=== PATIENT | male | born 1940 | race Caucasian/White ===

== ENCOUNTER → 2016-09-11 | Outpatient (CLI) | payer MEDICARE, BC | LOC: MW.CHNEURO 08:00 | PROVIDERS: ATTEND Psychiatry & Neurology Neuromuscular Medicine | DX: G25.0 Essential tremor (principal) | CPT/HCPCS: 99204 ==

== ENCOUNTER 2017-06-04 08:56 | Day surgery (SDC) | payer MEDICARE, BC ==
[~2017-06-04 08:56] MED LIST: Lactated Ringers 1,000 ML IV SCH; Midazolam 1 MG/ML 2 ML SDV ONE; Propofol 200 MG/20 ML SDV ONE; Sodium Chloride 0.9% 10 ML Syringe FLUSH PRN; Sodium Chloride 0.9% 2.5 ML Syringe FLUSH PRN; fentaNYL 100 MCG/2 ML SDV ONE
--- NOTE | 2017-06-04 09:38 | PCM.PREANE ---
Preanesthetic Assessment - Anesthesia/Transfusion/Family Hx Anesthesia History: Prior Anesthesia Without Reaction Family History of Anesthesia Reaction: No Transfusion History: No Prior Transfusion(s) Intubation History: Unknown - Review of Systems General: No Symptoms Pulmonary: No Symptoms Cardiovascular: No Symptoms Gastrointestinal: No Symptoms, Other (h/o colon polyps, ;ast colonoscopy 5 years ago) Neurological: No Symptoms Other: Reports: None - Physical Assessment NPO Status Date: 06/03/17 NPO Status Time: 23:00 O2 Sat by Pulse Oximetry: 96 Respiratory Rate: 16 Vital Signs: Last Vital Signs Temp 37.2 C 06/04/17 09:18 Pulse 80 06/04/17 09:18 Resp 16 06/04/17 09:18 BP 118/56 L 06/04/17 09:18 Pulse Ox 96 06/04/17 09:18 Height: 1.88 m Weight: 120.656 kg ASA Class: 3 Mental Status: Alert & Oriented x3 Airway Class: Mallampati = 2 Dentition: Reports: Dentures (upper) Thyro-Mental Finger Breadths: 3 Mouth Opening Finger Breadths: 3 ROM/Head Extension: Limited/Partial Lungs: Clear to Auscultation, Normal Respiratory Effort Cardiovascular: Regular Rate, Regular Rhythm - Allergies Allergies/Adverse Reactions: Allergies Allergy/AdvReac Type Severity Reaction Status Date / Time No Known Allergies Allergy Verified 05/26/17 16:57 - Blood Blood Available: No - Anesthesia Plan Pre-Op Medication Ordered: None - Acknowledgements Anesthesia Type Planned: MAC Pt an Appropriate Candidate for the Planned Anesthesia: Yes Alternatives and Risks of Anesthesia Discussed w Pt/Guardian: Yes Pt/Guardian Understands and Agrees with Anesthesia Plan: Yes PreAnesthesia Questionnaire HEENT History: Reports: Hard of Hearing, Macular Degeneration Other HEENT History: wears glasses, has bilateral hearing aides Cardiovascular History: Reports: CAD, High Cholesterol, Hypertension, [place] (after CABG- before stents), Stents Other Cardiovascular History: denies current chest pain, SOB....has not taken any nitroglycerine for 5 years, CABG-4 vessels, stents x3 Respiratory History: Reports: Other (See Below) Other Respiratory History: pleural effusion after CABG Gastrointestinal History: Reports: Colon Polyp, GERD, Helicobacter Pylori Musculoskeletal History: Reports: Arthritis, Back Pain, Chronic, Other (See Below) Other Musculoskeletal History: left shoulder pain Neurological History: Reports: Neuropathy, Peripheral, Other (See Below) Other Neuro History: familial tremors Psychiatric History: Reports: Depression Endocrine/Metabolic History: Reports: Obesity/BMI 30+ Dermatologic History: Reports: Eczema - Past Surgical History Cardiovascular Surgical History: Reports: Coronary Artery Bypass (x4 '04, last stent in '04) GI Surgical History: Reports: Colonoscopy (x2 ;ast 5 years ago was normal), EGD , Other (See Below) (hemorrhoidectomy) Neurological Surgical History: Reports: Laminectomy, Spinal Fusion Other Neurological Surgeries/Procedures: Spinal fusion from T11-S1. - SUBSTANCE USE Smoking Status *Q: Former Smoker Tobacco Use Within Last Twelve Months: No Recreational Drug Use History: No - HOME MEDS Home Medications: Home Meds Amitriptyline [Elavil] 25 mg PO BEDTIME 05/26/17 [History] Arginine HCl [l-Arginine] 1,000 mg PO TID 05/26/17 [History] Aspirin [Adult Low Dose Aspirin EC] 81 mg PO DAILY 05/26/17 [History] Carboxymethyl/Glycerin/Poly80 [Refresh Optive Advanced Drops] 1 drop EYEBOTH DAILY 05/26/17 [History] Cholecalciferol (Vitamin D3) [Vitamin D3] 400 unit PO DAILY 05/26/17 [History] Clopidogrel Bisulfate [Plavix] 5 mg PO DAILY 05/26/17 [History] Cyanocobalamin/FA/Pyridoxine [Folbic] 1 tab PO DAILY 05/26/17 [History] Famotidine [Pepcid AC] 20 mg PO BID PRN 05/26/17 [History] Fenofibrate Nanocrystallized [Fenofibrate] 145 mg PO DAILY 05/26/17 [History] Fish Oil/[place]-3 Fatty Acids [Fish Oil 1,000 MG] 1 gm PO BID 05/26/17 [History] Hydrocodone/Acetaminophen [Hydrocodon-Acetaminophn 10-325] 1 - 2 tab PO TID PRN 05/26/17 [History] Isosorbide Mononitrate [Isosorbide Mononitrate ER] 30 mg PO BID 05/26/17 [ History] Nitroglycerin [Nitrostat] 0.4 mg PO ASDIRECTED PRN 05/26/17 [History] PARoxetine HCl [Paroxetine HCl] 10 mg PO QAM 05/26/17 [History] Primidone 100 mg PO BID 05/26/17 [History] Vit A/Vit C/Vit E/Zinc/Copper [Preservision Areds Softgel] 1 cap PO BID [History] amLODIPine Besylate [Amlodipine Besylate] 5 mg PO BID 05/26/17 [History] atorvaSTATin Calcium [Atorvastatin Calcium] 10 mg PO DAILY 05/26/17 [History] - CURRENT (IN HOUSE) MEDS Current Meds: Current Medications Lactated Ringer's (Ringers, Lactated) 1,000 mls @ 125 mls/hr IV ASDIRECTED MAAME Last Admin: 06/04/17 09:19 Dose: 125 mls/hr Lactated Ringer's (Ringers, Lactated) 1,000 mls @ 125 mls/hr IV ASDIRECTED MAAME Sodium Chloride (Saline Flush) 10 ml FLUSH ASDIRECTED PRN PRN Reason: Keep Vein Open Sodium Chloride (Saline Flush) 2.5 ml FLUSH ASDIRECTED PRN PRN Reason: Keep Vein Open Sodium Chloride (Saline Flush) 10 ml FLUSH ASDIRECTED PRN PRN Reason: Keep Vein Open Sodium Chloride (Saline Flush) 2.5 ml FLUSH ASDIRECTED PRN PRN Reason: Keep Vein Open Sodium Chloride (Saline Flush) 10 ml FLUSH ASDIRECTED PRN PRN Reason: Keep Vein Open Sodium Chloride (Saline Flush) 2.5 ml FLUSH ASDIRECTED PRN PRN Reason: Keep Vein Open Discontinued Medications Fentanyl (Sublimaze) Confirm Administered Dose 100 mcg .ROUTE .STK-MED ONE Stop: 06/04/17 07:17 Midazolam HCl (Versed 1 Mg/Ml) Confirm Administered Dose 2 mg .ROUTE .STK-MED ONE Stop: 06/04/17 07:17 Propofol (Diprivan 20 Ml) Confirm Administered Dose 200 mg .ROUTE .STK-MED ONE Stop: 06/04/17 07:17
--- NOTE | 2017-06-04 11:13 | PCM.OPNOTE ---
- General Post-Op/Procedure Note Date of Surgery/Procedure: 06/04/17 Operative Procedure(s): Colonoscopy Findings: Normal colonoscopy Pre Op Diagnosis: positive fecal occult blood test Post-Op Diagnosis: normal colonoscopy Primary Surgeon: Lidia Iglesias Condition: Good
--- NOTE | 2017-06-05 13:25 | OR ---
SURGEON: LIDIA IGLESIAS MD DATE OF PROCEDURE: 06/04/2017 PREOPERATIVE DIAGNOSIS: Positive fecal occult blood test. POSTOPERATIVE DIAGNOSIS: Positive fecal occult blood test. PROCEDURE PERFORMED: Diagnostic colonoscopy. ENDOSCOPIST: Lidia Iglesias MD ANESTHESIA: MAC. INSTRUMENT USED: Olympus colonoscope. EXTENT OF EXAM: To the cecum. PREPARATION: Good. LIMITATIONS: None. INDICATION FOR EXAMINATION: The patient is a 77-year-old male, who presents with a positive fecal occult blood test. The decision was made to perform a diagnostic colonoscopy. We discussed the procedure, expected perioperative course, and risks including bleeding, infection, or damage to surrounding structures including perforation. The patient verbalized understanding and wishes to proceed. PROCEDURE IN DETAIL: The patient was brought to the endoscopy suite and placed in the left lateral decubitus position. A time-out was completed verifying the patient's name, age, date of , allergies, and procedure to be performed. Monitored anesthesia care was induced and continuous oxygen was provided via nasal cannula throughout the procedure. After adequate sedation was achieved, a digital rectal exam was performed. This exam was within normal limits. A well-lubricated colonoscope was inserted in the rectum and advanced under direct visualization to the level of cecum. Cecum was identified by both visual and anatomic landmarks. A photograph was taken of the cecal cap, but due to looping of the scope more proximally, I was unable to retroflex the scope within the cecum. The scope was then fully withdrawn while examining the color, texture, anatomy, and integrity of the mucosa from the cecum to the anal canal. The findings were consistent with normal colonic mucosa. The scope was then brought into the rectum and retroflexed to allow visualization of the anal canal opening. This appeared normal and a photograph was taken. The scope was then straightened out and fully withdrawn. The cecum to anus time was 9 minutes. The patient tolerated the procedure well and was taken to PACU in stable condition. ENDOSCOPIC DIAGNOSIS: Normal colonoscopy. RECOMMENDATIONS: The patient can return to his primary care physician's office for any further workup. The patient would be due for a repeat colonoscopy in 10 years. However, given his age, I will not schedule a followup appointment in clinic. He can come back and see me if there are any questions, concerns, or new symptoms that develop. GARY / DAY /[id number]
== END 2017-06-04 11:50 | disposition home or self-care (01) ==
LOC: MW.SDS 08:56
PROVIDERS: ATTEND Surgery
DX: R19.5 Other fecal abnormalities (principal); G89.29 Other chronic pain; M54.5 Low back pain; F32.9 Major depressive disorder, single episode, unspecified; I10 Essential (primary) hypertension; E78.00 Pure hypercholesterolemia, unspecified; E78.1 Pure hyperglyceridemia; Z79.82 Long term (current) use of aspirin; Z79.899 Other long term (current) drug therapy; Z87.891 Personal history of nicotine dependence
CPT/HCPCS: 45378; J2250; J3010; J7120; 00811; J2704

== ENCOUNTER 2020-01-27 10:09 | Day surgery (SDC) | payer MEDICARE, BC ==
[~2020-01-27 10:09] MED LIST changes: -Midazolam 1 MG/ML 2 ML SDV ONE; -Propofol 200 MG/20 ML SDV ONE; +Sodium Chloride 0.9% 10 ML SDV IV PRN; -fentaNYL 100 MCG/2 ML SDV ONE
[2020-01-27] MEDS ORDERED: fentaNYL 100 MCG/2 ML SDV ONE (10:32)
[2020-01-27] MEDS ORDERED: Lidocaine 2% 5 ML SDV ONE (10:32)
--- NOTE | 2020-01-27 10:56 | PCM.PREANE ---
Preanesthetic Assessment - Anesthesia/Transfusion/Family Hx Anesthesia History: Prior Anesthesia Without Reaction Family History of Anesthesia Reaction: No Transfusion History: No Prior Transfusion(s) Intubation History: Unknown - Review of Systems General: No Symptoms Pulmonary: No Symptoms Cardiovascular: No Symptoms Gastrointestinal: Other (chronic fatigue, chronic cough and newly diagnosed anemia, h/o esophagitis) Neurological: No Symptoms, Tremors Other: Reports: None - Physical Assessment Vital Signs: Last Vital Signs Temp 36.2 C 01/27/20 10:20 Pulse 80 01/27/20 10:20 Resp 16 01/27/20 10:20 BP 126/71 01/27/20 10:20 Pulse Ox 98 01/27/20 10:20 Height: 6 ft 2 in Weight: 113.398 kg ASA Class: 3 Mental Status: Alert & Oriented x3 Airway Class: Mallampati = 2 Dentition: Reports: Dentures (upper) Thyro-Mental Finger Breadths: 3 Mouth Opening Finger Breadths: 3 ROM/Head Extension: Limited/Partial Lungs: Clear to Auscultation, Normal Respiratory Effort Cardiovascular: Regular Rate, Regular Rhythm - Allergies Allergies/Adverse Reactions: Allergies Allergy/AdvReac Type Severity Reaction Status Date / Time pistachio nut Allergy Airway Verified 01/24/20 11:46 Tightness - Blood Blood Available: No - Anesthesia Plan Pre-Op Medication Ordered: None - Acknowledgements Anesthesia Type Planned: MAC Pt an Appropriate Candidate for the Planned Anesthesia: Yes Alternatives and Risks of Anesthesia Discussed w Pt/Guardian: Yes Pt/Guardian Understands and Agrees with Anesthesia Plan: Yes PreAnesthesia Questionnaire HEENT History: Reports: Hard of Hearing, Macular Degeneration Other HEENT History: wears glasses, has upper denture, has bilateral hearing aides Cardiovascular History: Reports: CAD, High Cholesterol, Hypertension, CA ('04), Stents (c3 '04) Other Cardiovascular History: CABG Respiratory History: Reports: Other (See Below) Other Respiratory History: hx of Pleural effusion after CABG, has had chronic acough x 4 months Gastrointestinal History: Reports: Colon Polyp, GERD, GI Bleed Genitourinary History: Reports: Prostate Disorder Other Genitourinary History: hx of prostate cancer Musculoskeletal History: Reports: Arthritis, Back Pain, Chronic, Neck Pain, Chronic Other Musculoskeletal History: left shoulder pain Neurological History: Reports: Other (See Below) Other Neuro History: hx of Familial tremors Psychiatric History: 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) Endocrine/Metabolic History: Reports: Obesity/BMI 30+ (BMI 32.1) Hematologic History: Reports: Anemia, Anticoagulation Therapy Oncologic (Cancer) History: Reports: Prostate Dermatologic History: Reports: Eczema - Past Surgical History Head Surgeries/Procedures: Reports: None HEENT Surgical History: Reports: None Cardiovascular Surgical History: Reports: Coronary Artery Bypass, Coronary Artery Stent Other Cardiovascular Surgeries/Procedures: hx of CABG (4 vessels), hx of CA with Angioplasty (3 stents) in 2003 Respiratory Surgical History: Reports: Thoracentesis Other Respiratory Surgeries/Procedures: thoracentesis x3 GI Surgical History: Reports: Colonoscopy (x3, '07.'12.), EGD Other GI Surgeries/Procedures: hemorrhoidectomy Male Surgical History: Reports: Prostate Biopsy Neurological Surgical History: Reports: Lumbar Spine, Spinal Fusion Other Neurological Surgeries/Procedures: Spinal fusion from T11-S1. Musculoskeletal Surgical History: Reports: Hip Replacement Other Musculoskeletal Surgeries/Procedures:: hx of right XIOMY 06/10 - SUBSTANCE USE Smoking Status *Q: Former Smoker Tobacco Use Within Last Twelve Months: No Recreational Drug Use History: No - HOME MEDS Home Medications: Home Meds Amitriptyline [Elavil] 25 mg PO BEDTIME 05/26/17 [History] Arginine HCl [l-Arginine] 1,000 mg PO TID 05/26/17 [History] Aspirin [Adult Low Dose Aspirin EC] 81 mg PO DAILY 05/26/17 [History] Carboxymethyl/Glycerin/Poly80 [Refresh Optive Advanced Drops] 1 drop EYEBOTH BID PRN 05/26/17 [History] Clopidogrel Bisulfate [Plavix] 75 mg PO DAILY 05/26/17 [History] Fenofibrate Nanocrystallized [Fenofibrate] 145 mg PO DAILY 05/26/17 [History] Fish Oil/[place]-3 Fatty Acids [Fish Oil 1,000 MG] 1 gm PO BID 05/26/17 [History] Isosorbide Mononitrate [Isosorbide Mononitrate ER] 30 mg PO BID 05/26/17 [History] Nitroglycerin [Nitrostat] 0.4 mg PO Q5M PRN MDD 3 05/26/17 [History] Vit A/Vit C/Vit E/Zinc/Copper [Preservision Areds Softgel] 1 cap PO BID 05/26/17 [History] amLODIPine Besylate [Amlodipine Besylate] 5 mg PO BID 05/26/17 [History] atorvaSTATin Calcium [Atorvastatin Calcium] 10 mg PO DAILY 05/26/17 [History] Docusate Sodium 100 mg PO BID 04/04/18 [History] Finasteride 5 mg PO DAILY 04/04/18 [History] Primidone [Mysoline] 150 mg PO BID 04/04/18 [History] Cholecalciferol (Vitamin D3) [Vitamin D3] 1,000 unit PO DAILY 01/24/20 [History] Cyanocobalamin/FA/Pyridoxine [Folbic] 1 tab PO DAILY 01/24/20 [History] Famotidine [Pepcid AC] 20 mg PO BID PRN 01/24/20 [History] Omeprazole 20 mg PO QAM 01/24/20 [History] PARoxetine HCL [Paroxetine HCl] 10 mg PO QAM 01/24/20 [History] Sucralfate 1 gm PO QID 01/24/20 [History] - CURRENT (IN HOUSE) MEDS Current Meds: Current Medications Lactated Ringer's (Ringers, Lactated) 1,000 mls @ 125 mls/hr IV ASDIRECTED MAAME Last Admin: 01/27/20 10:35 Dose: 125 mls/hr Documented by: Sodium Chloride (Saline Flush) 10 ml FLUSH ASDIRECTED PRN PRN Reason: Keep Vein Open Sodium Chloride (Saline Flush) 2.5 ml FLUSH ASDIRECTED PRN PRN Reason: Keep Vein Open Sodium Chloride (Saline Flush) 10 ml FLUSH ASDIRECTED PRN PRN Reason: Keep Vein Open Sodium Chloride (Saline Flush) 2.5 ml FLUSH ASDIRECTED PRN PRN Reason: Keep Vein Open Sodium Chloride (Normal Saline) 10 ml IV ASDIRECTED PRN PRN Reason: IV Use Discontinued Medications Fentanyl (Sublimaze) Confirm Administered Dose 100 mcg .ROUTE .STK-MED ONE Stop: 01/27/20 10:33 Lidocaine (Xylocaine-Mpf 2%) Confirm Administered Dose 5 ml .ROUTE .STK-MED ONE Stop: 01/27/20 10:33
[2020-01-27] MEDS ORDERED: Sodium Chloride 0.9% 20 ML ONE (10:58)
[2020-01-27] MEDS ORDERED: ceFAZolin 1 GM Vial ONE (10:58)
--- NOTE | 2020-01-27 11:14 | PCM.OPNOTE ---
- General Post-Op/Procedure Note Date of Surgery/Procedure: 01/27/20 Operative Procedure(s): Diagnostic EGD. Findings: Gastritis with very superficial ulcerations. No evidence of esophagitis. Small hiatal hernia. Hyperplastic gastric polyp. Pre Op Diagnosis: Iron deficiency anemia. Post-Op Diagnosis: Gastritis. Small hiatal hernia. Hyperplastic gastric polyp. Anesthesia Technique: [facility] [place] Primary Surgeon: Lidia Iglesias Complications: None. Condition: Stable
[2020-01-27] MEDS ORDERED: Propofol 200 MG/20 ML SDV ONE (11:15)
--- NOTE | 2020-01-27 14:20 | OR ---
SURGEON: LIDIA IGLESIAS MD DATE OF PROCEDURE: 01/27/2020 PREOPERATIVE DIAGNOSIS: Iron-deficiency anemia. POSTOPERATIVE DIAGNOSES: 1. Hyperplastic gastric polyp. 2. Gastritis. 3. Superficial ulceration of the distal stomach lining. 4. Hiatal hernia. PROCEDURE PERFORMED: Diagnostic esophagogastroduodenoscopy with biopsies. PRIMARY SURGEON: Lidia Iglesias MD. ANESTHESIA: MAC. INSTRUMENT USED: Olympus endoscope. EXTENT OF EXAM: To the second portion of duodenum. PREPARATION: Good. LIMITATIONS: None. INDICATIONS FOR EXAMINATION: The patient is a 79-year-old male who presents to my clinic with iron-deficiency anemia. He underwent a hip replacement last winter and ever since then he has felt weak. Blood work prior to the surgery was normal; however, ever since the surgery he has had mild iron deficiency anemia. He underwent a colonoscope 2 years ago which was normal. A decision was made to proceed with diagnostic EGD. He underwent a preoperative esophagram which showed a small hiatal hernia associated with moderate reflux and moderate esophageal spasm. The patient and I discussed the EGD procedure as well as expected perioperative course and risks including bleeding and perforation. He verbalized understanding and wishes to proceed. PROCEDURE IN DETAIL: The patient was brought to the endoscopy suite and placed in a beach chair position. A time-out was completed verifying the patient's name, age, date of , allergies, and procedure to be performed. Monitored anesthesia care was induced and a bite block was placed in the patient's mouth. Continuous oxygen was provided via nasal cannula throughout the procedure. After adequate sedation was achieved, a well-lubricated endoscope was placed in the patient's mouth and advanced under direct visualization to the second portion of duodenum. This appeared normal and a photograph was taken. The scope was then fully withdrawn while examining the color, texture, anatomy, and integrity of mucosa of the upper GI tract. The duodenum appeared normal with no evidence of ulceration or inflammation. The scope was brought into the stomach and a photograph taken of the pylorus as well as the GE junction. The patient had a very small hiatal hernia. In the antrum and body of the stomach, the patient had what appeared to be chronic gastritis with small pinpoint areas of healing ulceration. There were some scattered hyperplastic polyps within the body of the stomach lining as well. Biopsies were taken of the gastric antrum, body, and fundus and sent for histologic review and H pylori testing. One of the hyperplastic polyps was removed as well and sent to Pathology, labeled as hyperplastic gastric polyp. The scope was brought into the distal esophagus and a photograph taken of the Z-line. Grossly, the Z-line appeared normal. The distal esophageal mucosa had no signs of esophagitis or ulceration. A biopsy was taken 1 cm above the Z-line and sent to Pathology, labeled as esophagus. The esophagus was mildly tortuous along the distal half, but otherwise the remainder of the exam was normal. The scope was brought into the posterior pharynx and a photograph was taken of the vocal cords, which appeared normal. The scope was removed and the procedure terminated. The patient tolerated the procedure well and was transferred to the PACU in stable condition. ENDOSCOPIC DIAGNOSES: 1. Hyperplastic gastric polyp. 2. Gastritis. 3. Superficial ulceration of the distal stomach lining. 4. Hiatal hernia. RECOMMENDATIONS: We will switch the patient from omeprazole to pantoprazole 40 mg daily and refill his sucralfate. He should continue to take these and will follow up in clinic in 1 to 2 weeks to review his biopsy results. GARY BERNSTEIN /[id number]
--- NOTE | 2020-01-27 14:33 | PCM.POSTAN ---
POST ANESTHESIA ASSESSMENT - MENTAL STATUS Mental Status: Alert, Oriented - VITAL SIGNS Vital Signs: Last Vital Signs Temp 35.9 C L 01/27/20 11:27 Pulse 88 01/27/20 11:27 Resp 14 01/27/20 11:27 BP 140/70 01/27/20 11:27 Pulse Ox 94 L 01/27/20 12:18 - RESPIRATORY Respiratory Status: Respiratory Rate WNL, Airway Patent, O2 Saturation Stable - CARDIOVASCULAR CV Status: Pulse Rate WNL, Blood Pressure Stable - GASTROINTESTINAL GI Status: No Symptoms - PAIN Pain Score: 0 - POST OP HYDRATION Hydration Status: Adequate & Stable - OBSERVATIONS Free Text/Narrative:: No anesthesia problems
--- NOTE | 2020-01-27 14:34 | PCM48HPAN ---
Post Anesthesia Note - EVALUATION WITHIN 48HRS OF ANESTHETIC Vital Signs in Normal Range: Yes Patient Participated in Evaluation: Yes Respiratory Function Stable: Yes Airway Patent: Yes Cardiovascular Function Stable: Yes Hydration Status Stable: Yes Pain Control Satisfactory: Yes Nausea and Vomiting Control Satisfactory: Yes Mental Status Recovered: Yes Vital Signs: Last Vital Signs Temp 35.9 C L 01/27/20 11:27 Pulse 88 01/27/20 11:27 Resp 14 01/27/20 11:27 BP 140/70 01/27/20 11:27 Pulse Ox 94 L 01/27/20 12:18 - COMMENTS/OBSERVATIONS Free Text/Narrative:: No anesthesia problems
== END 2020-01-27 12:18 | disposition home or self-care (01) ==
LOC: MW.SDS 10:09
PROVIDERS: ATTEND Surgery
DX: K29.50 Unspecified chronic gastritis without bleeding (principal); K31.7 Polyp of stomach and duodenum; K25.9 Gastric ulcer, unspecified as acute or chronic, without hemorrhage or perforation; D50.9 Iron deficiency anemia, unspecified; K44.9 Diaphragmatic hernia without obstruction or gangrene; G89.29 Other chronic pain; F32.9 Major depressive disorder, single episode, unspecified; I25.2 Old myocardial infarction; I10 Essential (primary) hypertension; E78.1 Pure hyperglyceridemia; R05 Cough; R53.83 Other fatigue; I25.10 Atherosclerotic heart disease of native coronary artery without angina pectoris; E78.00 Pure hypercholesterolemia, unspecified; Z79.899 Other long term (current) drug therapy; Z79.82 Long term (current) use of aspirin; Z95.5 Presence of coronary angioplasty implant and graft; Z91.018 Allergy to other foods
CPT/HCPCS: 43239; J0690; J2001; J2704; J3010; J7120; 00731; 88305; 88312

== ENCOUNTER 2020-06-20 13:55 | Emergency (ER) | payer MEDICARE, BC ==
[2020-06-20] MEDS ORDERED: diphenhydrAMINE 50 MG/ML SDV IVPUSH ONE ×2 (14:10→15:10)
[2020-06-20] MEDS ORDERED: Metoclopramide 10 MG/2 ML SDV IVPUSH ONE ×2 (14:10→15:10)
[2020-06-20] MEDS ORDERED: Lactated Ringers 1,000 ML IV ONE (14:10)
--- NOTE | 2020-06-20 14:19 | EDM.PDOC ---
ED HPI GENERAL MEDICAL PROBLEM - General Chief Complaint: Headache Stated Complaint: HEAD PAIN Time Seen by Provider: 06/20/20 13:59 - History of Present Illness INITIAL COMMENTS - FREE TEXT/NARRATIVE: 80-year-old male with a history of intention tremor, CABG with stents on Plavix but not aspirin with history of GI bleeding no history of heart failure patient presenting with headache. Patient describes gradually worsening right occipital headache that started 4 days ago and initially was not terribly notable but has gotten worse and worse. There are no other neurologic symptoms with that he denies blurry vision he denies new difficulty walking (he has baseline difficulty walking due to multiple fusions in his back). He denies any focal weakness he denies any change in sensation. He denies any vertigo. He denies any fevers he denies any neck pain or stiffness. The headache goes away when he leans back in his recliner or lays down but immediately returns when he stands up. He denies any history of surgery on his brain or spinal cord. His back surgeries were many many years ago. He denies nausea or vomiting. Patient was seen in the clinic labs were ordered and the patient was sent to the CT scanner for noncontrast CT scan of his brain and he was then brought over to the ER. Headache Pain Score (Numeric/FACES): 6 - Related Data Allergies Allergy/AdvReac Type Severity Reaction Status Date / Time pistachio nut Allergy Airway Verified 01/24/20 11:46 Tightness Home Meds: Home Meds Amitriptyline [Elavil] 25 mg PO BEDTIME 05/26/17 [History] Arginine HCl [l-Arginine] 1,000 mg PO TID 05/26/17 [History] Aspirin [Adult Low Dose Aspirin EC] 81 mg PO DAILY 05/26/17 [History] Carboxymethyl/Glycerin/Poly80 [Refresh Optive Advanced Drops] 1 drop EYEBOTH BID PRN 05/26/17 [History] Clopidogrel Bisulfate [Plavix] 75 mg PO DAILY 05/26/17 [History] Fenofibrate Nanocrystallized [Fenofibrate] 145 mg PO DAILY 05/26/17 [History] Isosorbide Mononitrate [Isosorbide Mononitrate ER] 30 mg PO BID 05/26/17 [History] Nitroglycerin [Nitrostat] 0.4 mg PO Q5M PRN MDD 3 05/26/17 [History] Vit A/Vit C/Vit E/Zinc/Copper [Preservision Areds Softgel] 1 cap PO BID 05/26/17 [History] amLODIPine Besylate [Amlodipine Besylate] 5 mg PO BID 05/26/17 [History] atorvaSTATin Calcium [Atorvastatin Calcium] 10 mg PO DAILY 05/26/17 [History] Docusate Sodium 100 mg PO BID 04/04/18 [History] Finasteride 5 mg PO DAILY 04/04/18 [History] Primidone [Mysoline] 150 mg PO BID 04/04/18 [History] Cholecalciferol (Vitamin D3) [Vitamin D3] 1,000 unit PO DAILY 01/24/20 [History] Cyanocobalamin/FA/Pyridoxine [Folbic] 1 tab PO DAILY 01/24/20 [History] Famotidine [Pepcid AC] 20 mg PO BID PRN 01/24/20 [History] PARoxetine HCL [Paroxetine HCl] 10 mg PO QAM 01/24/20 [History] Sucralfate 1 gm PO QID 01/24/20 [History] Fish Oil/[place]-3 Fatty Acids [Fish Oil 1,000 MG] 1 gm PO QID 6 Days #60 01/27/20 [Rx] Pantoprazole [ProTONIX] 40 mg PO DAILY #30 tab.cr 01/27/20 [Rx] methylPREDNISolone [Medrol Dose Pack] 4 mg PO ASDIRECTED #1 dospk 06/20/20 [Rx] Past Medical History HEENT History: Reports: Hard of Hearing, Macular Degeneration Other HEENT History: wears glasses, has bilateral hearing aides Cardiovascular History: Reports: [place], Stents, Other (See Below) Other Cardiovascular History: CABG Respiratory History: Reports: Other (See Below) Other Respiratory History: pleural effusion after CABG Gastrointestinal History: Reports: Colon Polyp, GERD, GI Bleed Genitourinary History: Reports: Prostate Disorder Other Genitourinary History: hx of prostate cancer Musculoskeletal History: Reports: Arthritis, Back Pain, Chronic, Neck Pain, Chronic Other Musculoskeletal History: left shoulder pain Neurological History: Reports: Neuropathy, Peripheral, Other (See Below) Other Neuro History: familial tremors Psychiatric History: 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) Endocrine/Metabolic History: Reports: Obesity/BMI 30+ (BMI 32.1) Hematologic History: Reports: Anemia, Anticoagulation Therapy Oncologic (Cancer) History: Reports: Prostate Dermatologic History: Reports: Eczema - Past Surgical History Cardiovascular Surgical History: Reports: Coronary Artery Bypass GI Surgical History: Reports: Colonoscopy, EGD, Other (See Below) Neurological Surgical History: Reports: Laminectomy, Spinal Fusion Musculoskeletal Surgical History: Reports: Other (See Below) Social & Family History - Family History Family Medical History: No Pertinent Family History - Caffeine Use Caffeine Use: Reports: None ED ROS GENERAL - Review of Systems Review Of Systems: See Below Free Text/Narrative/Comment: General: No fever. Skin: No rash. Eyes: No vision problems. ENT: No sore throat. Neck: No neck stiffness. Respiratory: No shortness of breath. Cardiac: No chest pain. Gastrointestinal: No nausea, vomiting or abdominal pain. Musculoskeletal: No myalgias/arthralgias. Neurologic: Per HPI ED EXAM, GENERAL - Physical Exam Exam: See Below Free Text/Narrative:: General Appearance: No acute distress, appears comfortable Skin: No rash HEENT: Normocephalic/atraumatic, sclera anicteric, mucous membranes moist Neck: Normal range of motion Chest and Lungs: Bilateral breath sounds, clear to auscultation Cardiovascular: Regular rate and rhythm, no murmur Abdomen: Soft, non-tender Musculoskeletal: No edema or tenderness Neurologic: Awake, alert, bilateral intention tremor (baseline per patient), intact [id number] bilaterally 5 out of 5 strength bilateral upper and lower extremities, sensation grossly intact, cranial nerves III through XI intact bilaterally Psychiatric: Appropriate, cooperative Course - Vital Signs Last Recorded V/S: Last Vital Signs Temp 98.6 F 06/20/20 14:17 Pulse 73 06/20/20 14:17 Resp 18 06/20/20 14:17 BP 132/78 06/20/20 14:17 Pulse Ox 93 L 06/20/20 14:17 - Orders/Labs/Meds Meds: Medications Discontinued Medications Generic Name Dose Route Start Last Admin Trade Name Freq PRN Reason Stop Dose Admin Diphenhydramine HCl 25 mg 06/20/20 14:10 06/20/20 14:31 Benadryl IVPUSH 06/20/20 14:11 25 mg ONETIME ONE Administration Diphenhydramine HCl 25 mg 06/20/20 15:10 06/20/20 15:30 Benadryl IVPUSH 06/20/20 15:11 25 mg ONETIME ONE Administration Lactated Ringer's 1,000 mls @ 1,000 mls/hr 06/20/20 14:10 06/20/20 14:31 Ringers, Lactated IV 06/20/20 15:09 1,000 mls/hr .BOLUS ONE Administration Metoclopramide HCl 10 mg 06/20/20 14:10 06/20/20 14:31 Reglan IVPUSH 06/20/20 14:11 10 mg ONETIME ONE Administration Metoclopramide HCl 10 mg 06/20/20 15:10 06/20/20 15:31 Reglan IVPUSH 06/20/20 15:11 10 mg ONETIME ONE Administration Departure - Departure Time of Disposition: 16:08 Disposition: Home, Self-Care 01 Condition: Good Clinical Impression: Headache - Discharge Information *PRESCRIPTION DRUG MONITORING PROGRAM REVIEWED*: Not Applicable *COPY OF PRESCRIPTION DRUG MONITORING REPORT IN PATIENT MEHRAN: Not Applicable Prescriptions: methylPREDNISolone [Medrol Dose Pack] 4 mg PO ASDIRECTED #1 dospk Instructions: General Headache Without Cause Forms: ED Department Discharge Additional Instructions: Please be sure to take the Medrol Dosepak with food. Gradually improve over the next day or so. If your headache suddenly worsens or you develop any other new symptoms that concern you please return to the ER. Otherwise please follow-up with your primary care doctor. The following information is given to patients seen in the emergency department who are being discharged to home. This information is to outline your options for follow-up care. We provide all patients seen in our emergency department with a follow-up referral. The need for follow-up, as well as the timing and circumstances, are variable depending upon the specifics of your emergency department visit. If you don't have a primary care physician on staff, we will provide you with a referral. We always advise you to contact your personal physician following an emergency department visit to inform them of the circumstance of the visit and for follow-up with them and/or the need for any referrals to a consulting specialist. The emergency department will also refer you to a specialist when appropriate. This referral assures that you have the opportunity for follow-up care with a specialist. All of these measure are taken in an effort to provide you with optimal care, which includes your follow-up. Under all circumstances we always encourage you to contact your private physician who remains a resource for coordinating your care. When calling for follow-up care, please make the office aware that this follow-up is from your recent emergency room visit. If for any reason you are refused follow-up, please contact the [facility] Emergency Department at and asked to speak to the emergency department charge nurse. Sepsis Event Note (ED) - Focused Exam Vital Signs: Vital Signs Temp Pulse Resp BP Pulse Ox 06/20/20 14:17 98.6 F 73 18 132/78 93 L - Assessment/Plan Assessment:: 80-year-old male presenting with headache currently 8 out of 10 per his report. Gradual worsening is not consistent with subarachnoid hemorrhage and I do not have a clinical concern for that at this time. Given duration of symptoms and lack of fever and nontoxic appearance I do not have a clinical concern for meningitis or encephalitis. Patient has no focal neurologic findings that would suggest stroke either hemorrhagic or ischemic. He is without risk factors for dural venous sinus thrombosis and presentation would be highly atypical for this. He has no tenderness to his posterior skull or scalp that would suggest occipital neuralgia. The fact that it resolves with laying down and improves with sitting up would be consistent with a CSF leak. However the patient has no risk factors for this he has no recent trauma he has no recent neurologic procedures he has no reason to have a [employer] leak. Will provide 1 L of lactated Ringer's as well as 10 of Reglan and 25 of Benadryl and reassess while we await lab results from the clinic as well as the formal result of the CT scan of the brain. My initial review of the CT scan of the brain does not demonstrate any large intracranial mass or obvious intracranial hemorrhage to me. labs from clinic show normal WBC, unremarkable chemistry with stable mild renal insufficiency and negative COVID-[address] brain and C-spine likewise without acute pathology. 1607: Patient feels "pretty good" after 2 rounds of 25 mg of Benadryl and 10 mg of Reglan. Given the findings on the CT of the C-spine which show significant degenerative disc disease I wonder if this may be playing a role given his prior history of GI bleeding in the setting of NSAIDs we will do a Medrol Dosepak strict return precaution discussed and understood need follow-up with primary care doctor.
== END 2020-06-20 16:26 | disposition home or self-care (01) ==
LOC: MW.ED 13:55
DX: R51.9 Headache, unspecified (principal); N42.9 Disorder of prostate, unspecified; I25.2 Old myocardial infarction; M19.90 Unspecified osteoarthritis, unspecified site; G62.9 Polyneuropathy, unspecified; E66.9 Obesity, unspecified; Z68.31 Body mass index [BMI] 31.0-31.9, adult; Z95.1 Presence of aortocoronary bypass graft; Z79.02 Long term (current) use of antithrombotics/antiplatelets; K21.9 Gastro-esophageal reflux disease without esophagitis; Z79.82 Long term (current) use of aspirin; Z79.899 Other long term (current) drug therapy; Z91.013 Allergy to seafood
CPT/HCPCS: 96374; 96375; 96376; 99283; J1200; J2765; J7120

== ENCOUNTER 2020-08-23 14:21 | Emergency (ER) | payer MEDICARE, BC ==
[2020-08-23] MEDS ORDERED: Metoclopramide 10 MG/2 ML SDV IVPUSH ONE (14:48)
[2020-08-23] MEDS ORDERED: diphenhydrAMINE 50 MG/ML SDV IVPUSH ONE (14:48)
[2020-08-23] MEDS ORDERED: Sodium Chloride 0.9% 1,000 ML IV ONE (14:48)
[2020-08-23] MEDS ORDERED: Ketorolac 15 MG/ML SDV IVPUSH STA (14:49)
--- NOTE | 2020-08-23 15:53 | CT ---
INDICATION: Headache TECHNIQUE: CT head without contrast. COMPARISON: 06/20/2020 FINDINGS: CSF spaces: Within normal limits for age. Brain parenchyma: The ewing-white differentiation is normal. No sign of mass, hemorrhage, or midline shift. Skull base and calvarium: The visualized paranasal sinuses and mastoid air cells demonstrate no acute or significant findings. The visualized orbits are grossly unremarkable. No skull fractures. IMPRESSION: Unremarkable noncontrast head CT. Please note that all CT scans at this facility use dose modulation, iterative reconstruction, and/or weight-based dosing when appropriate to reduce radiation dose to as low as reasonably achievable. Dictated by Teto Miguel MD @ 08/23/2020 3:51:[address] Teto Miguel @ Aug 23 2020 3:51PM
[2020-08-23] MEDS ORDERED: predniSONE 10 MG Tab PO ONE (16:04)
--- NOTE | 2020-08-23 16:12 | EDM.PDOC ---
ED HPI GENERAL MEDICAL PROBLEM - General Chief Complaint: General Stated Complaint: PAIN AT BACK OF HEAD Time Seen by Provider: 08/23/20 14:31 - History of Present Illness INITIAL COMMENTS - FREE TEXT/NARRATIVE: HISTORY AND PHYSICAL: History of present illness: This is a 80-year-old gentleman who presents ER today complaining of pain to his right posterior occiput that started approximately 1 to 2 days ago. Patient reports that he saw his PCP yesterday and was started on [place] without any significant relief in his pain. Patient presents ER today with a 9 out of 10 pain to his posterior scalp. Patient denies any recent trauma. Patient has any recent fevers, shakes, chills, nausea, vomiting, diarrhea, dysuria, frequency, urgency, chest pain, abdominal pain. Patient denies any pain to his ears. Patient denies any drainage from his ears. Patient denies any new chemicals or dye to his hair. Patient reports he has had similar symptoms to this approximately 2 months ago for which she came to the ED and was given Reglan, Benadryl and IV fluids and was discharged with a Medrol Dosepak with significant relief in his pain. Patient is requesting the same regimen of medications to see if that might help him. Patient denies any weakness to his upper or lower extremities. Review of systems: As per history of present illness and below otherwise all systems reviewed and negative. Past medical history: As per history of present illness and as reviewed below otherwise noncontributory. Surgical history: As per history of present illness and as reviewed below otherwise noncontributory. Social history: No reported history of drug abuse. Family history: As per history of present illness and as reviewed below otherwise noncontributory. Physical exam: This patient was seen and evaluated during the 2019 SARS-CoV-2 novel coronavirus pandemic period. Community viral transmission is ongoing at time of this encounter and the emergency department is operating under pandemic response procedures. Constitutional: Patient is oriented to person, place, and time. Appears well- developed and well-nourished. No distress. HEENT: Moist mucous membranes Head: Normocephalic and atraumatic Eyes: Right eye exhibits no discharge. Left eye exhibits no discharge. No scleral icterus Neck: Normal range of motion. No tracheal deviation present. Cardiovascular: Normal rate and regular rhythm. Pulmonary: Effort normal, no respiratory distress. Abdominal: No distention Musculoskeletal: Normal range of motion Neurologic: Alert and oriented to person, place and time. Skin: [place], warm and dry. Psychiatric: Normal mood and affect. Behavior is normal. Judgment and thought content normal. Nursing note and vital signs have been reviewed Pupils equally round and reactive to light, extraocular motions intact. No nystagmus. Patient's tympanic membranes are normal. Patient has no tenderness with movement of his auricle. Patient has no palpable posterior auricular lymphadenopathy. Neck supple, no nuchal rigidity, no photophobia, no Kernig's sign or Brudzinski sign, patient does not present with signs or symptoms of be consistent with meningitis. Diagnostics: CT head: No acute pathology Therapeutics: Reglan 10 mg IV, Benadryl 50 mg IV, NSS x1 L, prednisone 40 mg p.o. x1 Assessment and plan: Is a 80-year-old gentleman who presents to the ER today complaining of pain to his right posterior scalp. Patient's ER work-up is been unremarkable with a normal CT scan of his head. Patient did receive similar medications that he did in June when he had a similar presentation and he reports that his pain went from a 9 out of 10 down to a 3 out of 10 feels much better. Patient will be discharged home with instructions to follow-up with his PCP. is requesting a Medrol Dosepak similar to what he received during his last bout of his scalp pain. Reassessment at the time of disposition demonstrates that the patient is in no acute distress. The patient has remained stable throughout the entire ED visit and is without objective evidence for acute process requiring urgent intervention or hospitalization. The patient is stable for discharge, counseling is provided as documented above, discussed symptomatic treatment and specific conditions for return. I have spoken with the patient/caregiver and discussed todays findings, in addition to providing specific details for the plan of care. Questions are answered and there is agreement with the plan. Definitive disposition and diagnosis as appropriate pending reevaluation and review of above. Right head Pain Score (Numeric/FACES): 8 - Related Data Allergies Allergy/AdvReac Type Severity Reaction Status Date / Time pistachio nut Allergy Airway Verified 08/23/20 14:29 Tightness Home Meds: Home Meds Amitriptyline [Elavil] 25 mg PO DAILY 08/23/20 [History] Arginine HCl [l-Arginine] 1,000 mg PO TID 08/23/20 [History] Carboxymethylcellulos/Glycerin [Refresh Optive] 4 drop EYEBOTH DAILY 08/23/20 [History] Cholecalciferol (Vitamin D3) [Vitamin D3] 1 tab PO DAILY 08/23/20 [History] Clopidogrel [Plavix] 75 mg PO DAILY 08/23/20 [History] Cyanocobalamin/FA/Pyridoxine [Folbic] 1 tab PO DAILY 08/23/20 [History] Docusate Sodium 100 mg PO BID 08/23/20 [History] Fenofibrate Nanocrystallized [Fenofibrate] 145 mg PO DAILY 08/23/20 [History] Finasteride 5 mg PO DAILY 08/23/20 [History] Hydrocodone/Acetaminophen [Hydrocodone-Acetamin 10-325 mg] 1 tab PO ASDIRECTED 08/23/20 [History] Isosorbide Mononitrate [Isosorbide Mononitrate ER] 60 mg PO DAILY 08/23/20 [History] Nitroglycerin 0.4 mg PO ASDIRECTED 08/23/20 [History] [place]-3 Fatty Acids/Fish Oil [Fish Oil 1,000 mg Capsule] 1 cap PO BID 08/23/20 [History] PARoxetine [Paxil] 10 mg PO DAILY 08/23/20 [History] Pantoprazole [ProTONIX IV] 40 mg PO DAILY 08/23/20 [History] Primidone [Mysoline] 50 mg PO BID 08/23/20 [History] Sucralfate 1 gm PO DAILY 08/23/20 [History] Vit C/E/Zn/Coppr/Lutein/Zeaxan [Preservision Areds 2 Softgel] 2 cap PO DAILY 08/23/20 [History] amLODIPine [Norvasc] 10 mg PO DAILY 08/23/20 [History] atorvaSTATin [Lipitor] 10 mg PO DAILY 08/23/20 [History] methylPREDNISolone [Medrol Dose Pack] 4 mg PO ASDIRECTED #1 dospk 08/23/20 [Rx] Past Medical History HEENT History: Reports: Hard of Hearing, Macular Degeneration Other HEENT History: wears glasses, has bilateral hearing aides Cardiovascular History: Reports: [place], Stents, Other (See Below) Other Cardiovascular History: CABG Respiratory History: Reports: Other (See Below) Other Respiratory History: pleural effusion after CABG Gastrointestinal History: Reports: Colon Polyp, GERD, GI Bleed Genitourinary History: Reports: Prostate Disorder Other Genitourinary History: hx of prostate cancer Musculoskeletal History: Reports: Arthritis, Back Pain, Chronic, Neck Pain, Chronic Other Musculoskeletal History: left shoulder pain Neurological History: Reports: Neuropathy, Peripheral, Other (See Below) Other Neuro History: familial tremors Psychiatric History: Reports: Depression Endocrine/Metabolic History: Reports: Obesity/BMI 30+ Hematologic History: Reports: Anemia, Anticoagulation Therapy Oncologic (Cancer) History: Reports: Prostate Dermatologic History: Reports: Eczema - Infectious Disease History Infectious Disease History: Reports: None - Past Surgical History Head Surgeries/Procedures: Reports: None HEENT Surgical History: Reports: None Cardiovascular Surgical History: Reports: Coronary Artery Bypass Other Cardiovascular Surgeries/Procedures: hx of CABG (4 vessels), hx of IA with Angioplasty (3 stents) in 2003 Respiratory Surgical History: Reports: Thoracentesis Other Respiratory Surgeries/Procedures: thoracentesis x3 GI Surgical History: Reports: Colonoscopy, EGD, Other (See Below) Other GI Surgeries/Procedures: hemorrhoidectomy Male Surgical History: Reports: Prostate Biopsy Neurological Surgical History: Reports: Laminectomy, Spinal Fusion Other Neurological Surgeries/Procedures: Spinal fusion from T11-S1. Musculoskeletal Surgical History: Reports: Other (See Below) Other Musculoskeletal Surgeries/Procedures:: hx of right XIOMY 06/10 Social & Family History - Family History Family Medical History: No Pertinent Family History - Tobacco Use Tobacco Use Status *Q: Never Tobacco User - Caffeine Use Caffeine Use: Reports: None - Recreational Drug Use Recreational Drug Use: No ED ROS GENERAL - Review of Systems Review Of Systems: See Below ED EXAM, GENERAL - Physical Exam Exam: See Below Course - Vital Signs Last Recorded V/S: Last Vital Signs Temp 97.6 F 08/23/20 14:29 Pulse 75 08/23/20 14:29 Resp 16 08/23/20 14:29 BP 131/87 08/23/20 14:29 Pulse Ox 96 08/23/20 14:29 - Orders/Labs/Meds Meds: Medications Discontinued Medications Generic Name Dose Route Start Last Admin Trade Name Freq PRN Reason Stop Dose Admin Diphenhydramine HCl 50 mg 08/23/20 14:48 08/23/20 15:05 Diphenhydramine 50 Mg/Ml Sdv IVPUSH 08/23/20 14:49 50 mg ONETIME ONE Administration Sodium Chloride 1,000 mls @ 999 mls/hr 08/23/20 14:48 08/23/20 15:05 Normal Saline IV 08/23/20 15:48 999 mls/hr .Bolus ONE Administration Ketorolac Tromethamine 15 mg 08/23/20 14:49 08/23/20 15:04 Ketorolac 15 Mg/Ml Sdv IVPUSH 08/23/20 14:50 15 mg Q6H STA Administration Metoclopramide HCl 10 mg 08/23/20 14:48 08/23/20 15:04 Metoclopramide 10 Mg/2 Ml Sdv IVPUSH 08/23/20 14:49 10 mg ONETIME ONE Administration Departure - Departure Time of Disposition: 16:08 Disposition: Home, Self-Care 01 Condition: Good Clinical Impression: Headache - Discharge Information Instructions: General Headache Without Cause Referrals: Sim Campos MD [Primary Care Provider] - Additional Instructions: Your seen and evaluated in the ER today secondary to pain to the posterior aspect of your scalp. CT scan of your head was unremarkable. In the ER you were given a dose of Reglan IV, Benadryl IV, IV fluids as well as a dose of oral prednisone. You will be sent home with a Medrol Dosepak. This appears to be a similar regimen to what he received last time when he had the same symptoms. Please go home and get plenty rest and reevaluate your symptoms in the morning. Please make an appointment to follow-up with your primary care doctor so they can reevaluate you as well. The following information is given to patients seen in the emergency department who are being discharged to home. This information is to outline your options for follow-up care. We provide all patients seen in our emergency department with a follow-up referral. The need for follow-up, as well as the timing and circumstances, are variable depending upon the specifics of your emergency department visit. If you don't have a primary care physician on staff, we will provide you with a referral. We always advise you to contact your personal physician following an emergency department visit to inform them of the circumstance of the visit and for follow-up with them and/or the need for any referrals to a consulting specialist. The emergency department will also refer you to a specialist when appropriate. This referral assures that you have the opportunity for follow-up care with a specialist. All of these measure are taken in an effort to provide you with optimal care, which includes your follow-up. Under all circumstances we always encourage you to contact your private physician who remains a resource for coordinating your care. When calling for follow-up care, please make the office aware that this follow-up is from your recent emergency room visit. If for any reason you are refused follow-up, please contact the [facility] Emergency Department at and asked to speak to the emergency department charge nurse. [facility] [address] [place] [id number] [facility] [address] [place] [id number] Sepsis Event Note (ED) - Evaluation Sepsis Screening Result: No Definite Risk - Focused Exam Vital Signs: Vital Signs Temp Pulse Resp BP Pulse Ox 08/23/20 14:29 97.6 F 75 16 131/87 96
== END 2020-08-23 16:32 | disposition home or self-care (01) ==
LOC: MW.ED 14:21
DX: R51.9 Headache, unspecified (principal); Z91.018 Allergy to other foods; I25.2 Old myocardial infarction; Z95.1 Presence of aortocoronary bypass graft; K21.9 Gastro-esophageal reflux disease without esophagitis; G62.9 Polyneuropathy, unspecified; E66.9 Obesity, unspecified; Z68.29 Body mass index [BMI] 29.0-29.9, adult; Z79.899 Other long term (current) drug therapy; Z79.02 Long term (current) use of antithrombotics/antiplatelets
CPT/HCPCS: 70450; 96374; 96375; 99284; A9270; J1200; J1885; J2765; J7030; 99283

== ENCOUNTER 2023-02-11 10:26 | Observation (INO) | payer MEDICARE, BC ==
[2023-02-11] MEDS ORDERED: Sodium Chloride 0.9% 1,000 ML IV ONE ×2 (10:32→11:39)
[2023-02-11] MEDS ORDERED: Sodium Chloride 0.9% 2.5 ML Syringe FLUSH PRN (10:32)
[2023-02-11] MEDS ORDERED: Sodium Chloride 0.9% 10 ML Syringe FLUSH PRN (10:32)
[2023-02-11 10:58] LABS: BASOPHILS PERCENT AUTO 0.8 % (0.0-1.0); EOSINOPHILS ABSOLUTE AUTO 0.34 K/uL (0.00-0.45); EOSINOPHILS PERCENT AUTO 2.6 % (0.0-6.0); HEMATOCRIT 45.8 % (42.0-52.0); HEMOGLOBIN 15.4 g/dL (14.0-18.0); IMMATURE GRAN ABSOLUTE AUTO 0.05 K/uL (0.00-0.05); IMMATURE GRAN PERCENT AUTO 0.4 % (0.0-0.4); MEAN CORPUSCULAR HEMOGLOBIN 30.3 pg (28.0-32.0); MEAN CORPUSCULAR HGB CONC 33.6 g/dL (32.0-36.0); MEAN PLATELET VOLUME 11.7 fL (9.4-12.4); MONOCYTES ABSOLUTE AUTO 0.92 K/uL (0.00-0.80); MONOCYTES PERCENT AUTO 6.9 % (0.0-8.0); NEUTROPHILS ABSOLUTE AUTO 11.03 K/uL (1.80-7.70); NEUTROPHILS PERCENT AUTO 83.3 % (41.0-71.0); PLATELET COUNT,PLT 265 K/uL (150-400); RED BLOOD CELL COUNT 5.09 M/uL (4.52-5.90); WHITE BLOOD CELL COUNT,WBC 13.24 K/uL (3.9-11.3)
[2023-02-11 11:28] LABS: A/G RATIO 0.8 (0.9-1.6); ALBUMIN 3.3 g/dL (3.4-5.0); BILIRUBIN TOTAL 0.8 mg/dL (0.2-1.0); CALCIUM 10.2 mg/dL (8.5-10.1); CREATININE 1.6 mg/dL (0.8-1.3); EST CRCL DRUG DOSING (CG) 43.28 mL/min; MAGNESIUM 1.7 mg/dL (1.8-2.4); POTASSIUM,K 4.3 mmol/L (3.5-5.1); PROTEIN TOTAL,TP 7.5 g/dL (6.4-8.2); TSH ULTRASENSITIVE 0.98 uIU/mL (0.36-3.74)
[2023-02-11] MEDS ORDERED: Iopamidol 755 MG/ML 500 ML Multipack Bottle IVPUSH STA (12:35)
[2023-02-11 13:36] LABS: APPEARANCE,URINE CLEAR; BILIRUBIN,URINE NEGATIVE (NEGATIVE); GLUCOSE,URINE NEGATIVE (NEGATIVE); KETONES,URINE NEGATIVE (NEGATIVE); LEUKOCYTE ESTERASE,URINE NEGATIVE (NEGATIVE); NITRITE,URINE NEGATIVE (NEGATIVE); OCCULT BLOOD,URINE NEGATIVE (NEGATIVE); PROTEIN,URINE TRACE mg/dL (NEGATIVE); UROBILINOGEN,URINE 0.2 EU/dL (<2.0)
[2023-02-11 13:40] LABS: COLOR,URINE AMBER
[2023-02-11 13:49] LABS: EPITHELIAL CELLS,URINE FEW (NONE-FEW); RBC,URINE 0-2 (0-2/HPF)
[2023-02-11 13:50] LABS: BACTERIA,URINE FEW (NEGATIVE)
[2023-02-11] MEDS: Sodium Chloride 0.9% 1,000 ML IV SCH (18:35)
[2023-02-11] MEDS ORDERED: Amitriptyline 25 MG Tab PO SCH (21:00)
[2023-02-11] MEDS ORDERED: atorvaSTATin 10 MG Tab PO SCH (21:00)
[2023-02-11] MEDS ORDERED: Pantoprazole 40 MG in Sodium Chloride 0.9% 10 ML IVPUSH SCH (22:00)
[2023-02-11] MEDS: Magnesium Sulfate/Water 2 GM/50 ML Premix Bag IV ONE (22:48)
[2023-02-11] MEDS ORDERED: Magnesium Sulfate/Water 2 GM in Premix Bag 1 BAG IV ONE (23:00)
[2023-02-11] MEDS ORDERED: atorvaSTATin 10 MG Tab PO ONE (23:00)
[2023-02-11] MEDS ORDERED: Amitriptyline 25 MG Tab PO ONE (23:00)
[2023-02-12] MEDS: Sodium Chloride 0.9% 1,000 ML IV SCH (02:38)
[2023-02-12 06:27] LABS: BASOPHILS ABSOLUTE AUTO 0.08 K/uL (0.00-0.20); BASOPHILS PERCENT AUTO 0.7 % (0.0-1.0); EOSINOPHILS PERCENT AUTO 3.3 % (0.0-6.0); HEMATOCRIT 40.3 % (42.0-52.0); HEMOGLOBIN 13.7 g/dL (14.0-18.0); IMMATURE GRAN ABSOLUTE AUTO 0.05 K/uL (0.00-0.05); IMMATURE GRAN PERCENT AUTO 0.4 % (0.0-0.4); LYMPHOCYTES ABSOLUTE AUTO 0.68 K/uL (1.00-4.80); LYMPHOCYTES PERCENT AUTO 5.6 % (24.0-44.0); MEAN CORPUSCULAR HEMOGLOBIN 30.4 pg (28.0-32.0); MEAN CORPUSCULAR VOLUME 89.6 fL (83.0-99.0); MEAN PLATELET VOLUME 12.2 fL (9.4-12.4); MONOCYTES ABSOLUTE AUTO 0.82 K/uL (0.00-0.80); MONOCYTES PERCENT AUTO 6.8 % (0.0-8.0); NEUTROPHILS ABSOLUTE AUTO 10.02 K/uL (1.80-7.70); NEUTROPHILS PERCENT AUTO 83.2 % (41.0-71.0); PLATELET COUNT,PLT 216 K/uL (150-400); WHITE BLOOD CELL COUNT,WBC 12.05 K/uL (3.9-11.3)
[2023-02-12] MEDS: Magnesium Sulfate/Water 2 GM/50 ML Premix Bag IV ONE (06:33)
[2023-02-12 06:50] LABS: A/G RATIO 0.8 (0.9-1.6); ALBUMIN 2.8 g/dL (3.4-5.0); BILIRUBIN TOTAL 0.8 mg/dL (0.2-1.0); CALCIUM 9.6 mg/dL (8.5-10.1); CARBON DIOXIDE,CO2 24.4 mmol/L (21.0-32.0); CREATININE 1.1 mg/dL (0.8-1.3); EST CRCL DRUG DOSING (CG) 62.95 mL/min; POTASSIUM,K 4.1 mmol/L (3.5-5.1); PROTEIN TOTAL,TP 6.3 g/dL (6.4-8.2)
[2023-02-12] MEDS ORDERED: Isosorbide Mononitrate 30 MG Tab.ER PO SCH (09:00)
[2023-02-12] MEDS ORDERED: amLODIPine 5 MG Tab PO SCH (09:00)
[2023-02-12] MEDS ORDERED: Clopidogrel 75 MG Tab PO SCH (09:00)
[2023-02-12] MEDS ORDERED: Primidone 50 MG Tab PO SCH (09:00)
== END 2023-02-12 14:35 | disposition home or self-care (01) ==
LOC: MW.ED 10:26 → MW.MS 16:20
PROVIDERS: ADMIT Internal Medicine; ATTEND Internal Medicine
DX: I95.9 Hypotension, unspecified (principal); I25.10 Atherosclerotic heart disease of native coronary artery without angina pectoris; K21.00 Gastro-esophageal reflux disease with esophagitis, without bleeding; E86.0 Dehydration; E86.1 Hypovolemia; K76.9 Liver disease, unspecified; K44.9 Diaphragmatic hernia without obstruction or gangrene; I24.9 Acute ischemic heart disease, unspecified; C61 Malignant neoplasm of prostate; E66.9 Obesity, unspecified; Z68.31 Body mass index [BMI] 31.0-31.9, adult; I25.2 Old myocardial infarction; Z87.891 Personal history of nicotine dependence; Z95.1 Presence of aortocoronary bypass graft; Z79.02 Long term (current) use of antithrombotics/antiplatelets; Z79.899 Other long term (current) drug therapy; Z91.018 Allergy to other foods
CPT/HCPCS: 36415; 70491; 70491-26; 71045; 71045-26; 74177; 74177-26; 80053; 81001; 83605; 83690; 83735; 84443; 84484; 85025; 93005; 93010; 96360; 96361; 96365; 96366; 96375; 99284; 99285-25; A9270-GY; C9113; G0378; J3475; J3490; J7030; Q9967

== ENCOUNTER 2023-03-04 07:16 | Day surgery (SDC) | payer MEDICARE, BC ==
[~2023-03-04 07:16] MED LIST changes: -Sodium Chloride 0.9% 10 ML SDV IV PRN; +Sodium Chloride 0.9% 20 ML SDV IV PRN
[2023-03-04] MEDS ORDERED: propofoL 0 ML ONE (07:42)
[2023-03-04] MEDS ORDERED: Dexmedetomidine 200 MCG/2 ML SDV ONE (07:50)
[2023-03-04] MEDS ORDERED: Water For Injection, Sterile 20 ML ONE ×3 (07:50→09:32)
[2023-03-04 08:45] LABS: A/G RATIO 0.8 (0.9-1.6); ALBUMIN 2.8 g/dL (3.4-5.0); BILIRUBIN TOTAL 1.2 mg/dL (0.2-1.0); CALCIUM 9.6 mg/dL (8.5-10.1); CARBON DIOXIDE,CO2 29.6 mmol/L (21.0-32.0); CREATININE 1.3 mg/dL (0.8-1.3); EST CRCL DRUG DOSING (CG) 51.81 mL/min; POTASSIUM,K 3.9 mmol/L (3.5-5.1); PROTEIN TOTAL,TP 6.5 g/dL (6.4-8.2)
[2023-03-04 08:49] LABS: BASOPHILS PERCENT AUTO 0.8 % (0.0-1.0); EOSINOPHILS ABSOLUTE AUTO 0.31 K/uL (0.00-0.45); EOSINOPHILS PERCENT AUTO 2.4 % (0.0-6.0); HEMOGLOBIN 14.1 g/dL (14.0-18.0); IMMATURE GRAN ABSOLUTE AUTO 0.06 K/uL (0.00-0.05); IMMATURE GRAN PERCENT AUTO 0.5 % (0.0-0.4); LYMPHOCYTES ABSOLUTE AUTO 0.53 K/uL (1.00-4.80); LYMPHOCYTES PERCENT AUTO 4.2 % (24.0-44.0); MEAN CORPUSCULAR HEMOGLOBIN 30.1 pg (28.0-32.0); MEAN CORPUSCULAR HGB CONC 32.8 g/dL (32.0-36.0); MEAN CORPUSCULAR VOLUME 91.9 fL (83.0-99.0); MEAN PLATELET VOLUME 12.5 fL (9.4-12.4); MONOCYTES ABSOLUTE AUTO 0.84 K/uL (0.00-0.80); MONOCYTES PERCENT AUTO 6.6 % (0.0-8.0); NEUTROPHILS ABSOLUTE AUTO 10.84 K/uL (1.80-7.70); NEUTROPHILS PERCENT AUTO 85.5 % (41.0-71.0); PLATELET COUNT,PLT 206 K/uL (150-400); RED BLOOD CELL COUNT 4.68 M/uL (4.52-5.90); WHITE BLOOD CELL COUNT,WBC 12.68 K/uL (3.9-11.3)
[2023-03-04 09:00] LABS: MAGNESIUM 1.8 mg/dL (1.8-2.4); PHOSPHORUS 3.5 mg/dL (2.6-4.7)
[2023-03-04] MEDS ORDERED: Midazolam 1 MG/ML 2 ML SDV ONE (09:01)
[2023-03-04] MEDS ORDERED: Ketamine 500 mg/10 ML MDV ONE (09:01)
[2023-03-04] MEDS ORDERED: Propofol 200 MG/20 ML SDV ONE (09:30)
[2023-03-04] MEDS ORDERED: cefOXitin 1 GM Vial ONE (10:01)
[2023-03-04] MEDS ORDERED: Ropivacaine 0.5% 5 MG/ML 30 ML SDV ONE (11:36)
[2023-03-04] MEDS ORDERED: Famotidine 20 MG/2 ML SDV ONE (11:36)
== END 2023-03-04 11:45 | disposition home or self-care (01) ==
LOC: MW.SDS 07:16
PROVIDERS: ATTEND Surgery
DX: C15.9 Malignant neoplasm of esophagus, unspecified (principal); C78.7 Secondary malignant neoplasm of liver and intrahepatic bile duct; D12.3 Benign neoplasm of transverse colon; D12.2 Benign neoplasm of ascending colon; K31.7 Polyp of stomach and duodenum; K21.9 Gastro-esophageal reflux disease without esophagitis; I10 Essential (primary) hypertension; F32.9 Major depressive disorder, single episode, unspecified; E66.9 Obesity, unspecified; Z68.31 Body mass index [BMI] 31.0-31.9, adult; I25.10 Atherosclerotic heart disease of native coronary artery without angina pectoris; E78.00 Pure hypercholesterolemia, unspecified; Z87.891 Personal history of nicotine dependence; Z95.5 Presence of coronary angioplasty implant and graft; Z79.02 Long term (current) use of antithrombotics/antiplatelets; Z79.899 Other long term (current) drug therapy
CPT/HCPCS: 36415; 43239; 45380; 80053; 83605; 83735; 84100; 85025; J0694; J2250; J2704; J3490; J7120; 00813; 88305; 88341; 88342; 88360; 99100; J2795

== ENCOUNTER 2023-03-23 15:08 | Emergency (ER) | payer MEDICARE, BC ==
[2023-03-23] MEDS ORDERED: Sodium Chloride 0.9% 1,000 ML IV ONE (15:38)
[2023-03-23] MEDS ORDERED: Ondansetron 4 MG/2 ML SDV IVPUSH ONE (15:38)
[2023-03-23 15:43] LABS: BASOPHILS ABSOLUTE AUTO 0.12 K/uL (0.00-0.20); BASOPHILS PERCENT AUTO 0.7 % (0.0-1.0); EOSINOPHILS ABSOLUTE AUTO 0.37 K/uL (0.00-0.45); EOSINOPHILS PERCENT AUTO 2.2 % (0.0-6.0); HEMATOCRIT 49.2 % (42.0-52.0); IMMATURE GRAN ABSOLUTE AUTO 0.05 K/uL (0.00-0.05); IMMATURE GRAN PERCENT AUTO 0.3 % (0.0-0.4); LYMPHOCYTES PERCENT AUTO 6.6 % (24.0-44.0); MEAN CORPUSCULAR HEMOGLOBIN 30.4 pg (28.0-32.0); MEAN CORPUSCULAR HGB CONC 32.5 g/dL (32.0-36.0); MEAN CORPUSCULAR VOLUME 93.4 fL (83.0-99.0); MEAN PLATELET VOLUME 12.1 fL (9.4-12.4); MONOCYTES ABSOLUTE AUTO 1.05 K/uL (0.00-0.80); MONOCYTES PERCENT AUTO 6.3 % (0.0-8.0); NEUTROPHILS ABSOLUTE AUTO 14.08 K/uL (1.80-7.70); NEUTROPHILS PERCENT AUTO 83.9 % (41.0-71.0); PLATELET COUNT,PLT 273 K/uL (150-400); RED BLOOD CELL COUNT 5.27 M/uL (4.52-5.90); WHITE BLOOD CELL COUNT,WBC 16.77 K/uL (3.9-11.3)
[2023-03-23 16:06] LABS: A/G RATIO 0.6 (0.9-1.6); ALBUMIN 2.7 g/dL (3.4-5.0); BILIRUBIN TOTAL 1.6 mg/dL (0.2-1.0); CALCIUM 9.7 mg/dL (8.5-10.1); CARBON DIOXIDE,CO2 25.8 mmol/L (21.0-32.0); CREATININE 1.8 mg/dL (0.8-1.3); EST CRCL DRUG DOSING (CG) 37.82 mL/min; MAGNESIUM 2.2 mg/dL (1.8-2.4); POTASSIUM,K 4.2 mmol/L (3.5-5.1); PROTEIN TOTAL,TP 7.2 g/dL (6.4-8.2)
== END 2023-03-23 17:11 | disposition home or self-care (01) ==
LOC: MW.ED 15:08
DX: E86.0 Dehydration (principal); I10 Essential (primary) hypertension; I25.2 Old myocardial infarction; E66.9 Obesity, unspecified; Z68.27 Body mass index [BMI] 27.0-27.9, adult; Z91.018 Allergy to other foods; Z79.899 Other long term (current) drug therapy; Z79.02 Long term (current) use of antithrombotics/antiplatelets
CPT/HCPCS: 36415; 80053; 83735; 85025; 96361; 96374; 99284; J2405; J7030

== ENCOUNTER 2023-03-26 10:21 | Inpatient (IN) | payer MEDICARE, BC ==
[2023-03-26] MEDS: Lactated Ringers 1,000 ML IV SCH ×2 (10:26→14:47)
[2023-03-26] MEDS ORDERED: fentaNYL 50 MCG/ML SDV IVPUSH PRN (10:37)
[2023-03-26] MEDS ORDERED: Metoclopramide 10 MG/2 ML SDV IVPUSH PRN (10:37)
[2023-03-26] MEDS ORDERED: Morphine 2 MG/ML SYRINGE IVPUSH PRN (10:37)
[2023-03-26] MEDS ORDERED: HYDROmorphone 1 MG/ML Syringe IVPUSH PRN (10:37)
[2023-03-26] MEDS ORDERED: Albuterol 0.083% 2.5 MG/3 ML Neb Soln NEB PRN (10:37)
[2023-03-26] MEDS ORDERED: Ondansetron 4 MG/2 ML SDV IVPUSH PRN ×2 (10:37→16:14)
[2023-03-26] MEDS ORDERED: Naloxone 0.4 MG/ML SDV IVPUSH PRN ×2 (10:37→15:23)
[2023-03-26] MEDS ORDERED: droPERidol 5 MG/2 ML SDV IVPUSH PRN (10:37)
[2023-03-26] MEDS ORDERED: Sodium Chloride 0.9% 20 ML SDV IV PRN (10:52)
[2023-03-26] MEDS ORDERED: Sodium Chloride 0.9% 2.5 ML Syringe FLUSH PRN ×2 (10:52→16:14)
[2023-03-26] MEDS ORDERED: cefOXitin 2 GM in Sodium Chloride 0.9% 50 ML IV ONE (10:52)
[2023-03-26] MEDS ORDERED: Sodium Chloride 0.9% 10 ML Syringe FLUSH PRN ×2 (10:52→16:14)
[2023-03-26 11:38] LABS: HEMATOCRIT 47.6 % (42.0-52.0); HEMOGLOBIN 14.9 g/dL (14.0-18.0); MEAN CORPUSCULAR HEMOGLOBIN 29.9 pg (28.0-32.0); MEAN CORPUSCULAR HGB CONC 31.3 g/dL (32.0-36.0); MEAN CORPUSCULAR VOLUME 95.4 fL (83.0-99.0); MEAN PLATELET VOLUME 12.7 fL (9.4-12.4); PLATELET COUNT,PLT 206 K/uL (150-400); RED BLOOD CELL COUNT 4.99 M/uL (4.52-5.90); WHITE BLOOD CELL COUNT,WBC 13.63 K/uL (3.9-11.3)
[2023-03-26] MEDS ORDERED: fentaNYL 250 MCG/5 ML SDV ONE (11:56)
[2023-03-26] MEDS ORDERED: Propofol 200 MG/20 ML SDV ONE (11:56)
[2023-03-26] MEDS ORDERED: Bupivacaine 0.5% 10 ML SDV ONE (11:59)
[2023-03-26] MEDS ORDERED: Heparin Sodium 100 Units/ML 3 ML Syringe ONE (12:00)
[2023-03-26] MEDS ORDERED: Lidocaine 1% 20 ML MDV ONE (12:00)
[2023-03-26 12:02] LABS: A/G RATIO 0.6 (0.9-1.6); ALBUMIN 2.4 g/dL (3.4-5.0); BILIRUBIN TOTAL 1.9 mg/dL (0.2-1.0); CALCIUM 9.3 mg/dL (8.5-10.1); CARBON DIOXIDE,CO2 26.6 mmol/L (21.0-32.0); CREATININE 1.8 mg/dL (0.8-1.3); EST CRCL DRUG DOSING (CG) 37.82 mL/min; POTASSIUM,K 4.1 mmol/L (3.5-5.1); PROTEIN TOTAL,TP 6.5 g/dL (6.4-8.2)
[2023-03-26] MEDS ORDERED: Ropivacaine 0.5% 5 MG/ML 30 ML SDV ONE (13:35)
[2023-03-26] MEDS ORDERED: Bupivacaine 0.5% 30 ML SDV ONE (13:37)
[2023-03-26] MEDS ORDERED: Dexamethasone 4 MG/ML 5 ML MDV ONE (14:11)
[2023-03-26] MEDS ORDERED: Ondansetron 4 MG/2 ML SDV ONE (14:11)
[2023-03-26] MEDS ORDERED: Sugammadex Sodium 200 MG/2 ML VIAL ONE (14:11)
[2023-03-26] MEDS ORDERED: cefOXitin 1 GM Vial ONE (14:11)
[2023-03-26] MEDS ORDERED: Rocuronium Bromide 50 MG/5 ML Syringe ONE (14:11)
[2023-03-26] MEDS ORDERED: Glycopyrrolate 0.2 MG/ML SDV ONE (14:58)
[2023-03-26 15:22] LABS: CALCIUM 9.1 mg/dL (8.5-10.1); CREATININE 1.9 mg/dL (0.8-1.3); EST CRCL DRUG DOSING (CG) 35.83 mL/min; POTASSIUM,K 4.4 mmol/L (3.5-5.1)
[2023-03-26] MEDS: Morphine 2 MG/ML SYRINGE IVPUSH PRN ×2 (15:40→19:45)
[2023-03-26] MEDS ORDERED: oxyCODONE 5 MG Tab GTUBE PRN (16:14)
[2023-03-26] MEDS ORDERED: Carboxymethylcellulose Sodium 0.5% Ophth Soln 0.4 ML UD Box of 30 EYEBOTH PRN (16:40)
[2023-03-26] MEDS: Dextrose 5% in Water 1,000 ML IV SCH (17:25)
[2023-03-26] MEDS: Pantoprazole 40 MG in Sodium Chloride 0.9% 10 ML IVPUSH SCH (17:32)
[2023-03-26] MEDS: Amitriptyline 25 MG Tab GTUBE SCH (20:28)
[2023-03-26] MEDS: Sucralfate Suspension 1 GM/10 ML Cup GTUBE SCH (20:28)
[2023-03-26] MEDS: Primidone 50 MG Tab GTUBE SCH (20:29)
[2023-03-26] MEDS ORDERED: Isosorbide Mononitrate 60 MG Tab.ER SCH (21:00)
[2023-03-27 00:58] LABS: CALCIUM 8.7 mg/dL (8.5-10.1); CARBON DIOXIDE,CO2 29.1 mmol/L (21.0-32.0); CREATININE 1.5 mg/dL (0.8-1.3); EST CRCL DRUG DOSING (CG) 45.38 mL/min; POTASSIUM,K 4.3 mmol/L (3.5-5.1)
[2023-03-27] MEDS: Dextrose 5% in Water 1,000 ML IV SCH (02:10)
[2023-03-27] MEDS: Pantoprazole 40 MG in Sodium Chloride 0.9% 10 ML IVPUSH SCH ×2 (04:24→15:41)
[2023-03-27 05:35] LABS: BASOPHILS ABSOLUTE AUTO 0.06 K/uL (0.00-0.20); BASOPHILS PERCENT AUTO 0.4 % (0.0-1.0); EOSINOPHILS ABSOLUTE AUTO 0.24 K/uL (0.00-0.45); EOSINOPHILS PERCENT AUTO 1.8 % (0.0-6.0); HEMATOCRIT 42.5 % (42.0-52.0); HEMOGLOBIN 13.5 g/dL (14.0-18.0); IMMATURE GRAN ABSOLUTE AUTO 0.05 K/uL (0.00-0.05); IMMATURE GRAN PERCENT AUTO 0.4 % (0.0-0.4); LYMPHOCYTES ABSOLUTE AUTO 0.73 K/uL (1.00-4.80); LYMPHOCYTES PERCENT AUTO 5.4 % (24.0-44.0); MEAN CORPUSCULAR HEMOGLOBIN 30.4 pg (28.0-32.0); MEAN CORPUSCULAR HGB CONC 31.8 g/dL (32.0-36.0); MEAN CORPUSCULAR VOLUME 95.7 fL (83.0-99.0); MEAN PLATELET VOLUME 12.6 fL (9.4-12.4); MONOCYTES ABSOLUTE AUTO 0.78 K/uL (0.00-0.80); MONOCYTES PERCENT AUTO 5.7 % (0.0-8.0); NEUTROPHILS ABSOLUTE AUTO 11.77 K/uL (1.80-7.70); NEUTROPHILS PERCENT AUTO 86.3 % (41.0-71.0); PLATELET COUNT,PLT 181 K/uL (150-400); RED BLOOD CELL COUNT 4.44 M/uL (4.52-5.90); WHITE BLOOD CELL COUNT,WBC 13.63 K/uL (3.9-11.3)
[2023-03-27 05:59] LABS: A/G RATIO 0.6 (0.9-1.6); ALBUMIN 2.1 g/dL (3.4-5.0); BILIRUBIN TOTAL 1.8 mg/dL (0.2-1.0); CALCIUM 8.9 mg/dL (8.5-10.1); CARBON DIOXIDE,CO2 32.1 mmol/L (21.0-32.0); CREATININE 1.6 mg/dL (0.8-1.3); EST CRCL DRUG DOSING (CG) 42.54 mL/min; PHOSPHORUS 3.4 mg/dL (2.6-4.7); POTASSIUM,K 4.2 mmol/L (3.5-5.1); PROTEIN TOTAL,TP 5.8 g/dL (6.4-8.2)
[2023-03-27] MEDS: Sucralfate Suspension 1 GM/10 ML Cup GTUBE SCH ×4 (06:36→21:16)
[2023-03-27] MEDS: Finasteride 5 MG Tab SCH (08:26)
[2023-03-27] MEDS: Isosorbide Mononitrate 30 MG Tab.ER SCH ×2 (08:26→21:14)
[2023-03-27] MEDS: Primidone 50 MG Tab GTUBE SCH ×2 (08:27→21:16)
[2023-03-27] MEDS: Morphine 2 MG/ML SYRINGE IVPUSH PRN ×3 (08:31→15:35)
[2023-03-27] MEDS ORDERED: Dextrose 5% in Water 1,000 ML IV SCH (08:45)
[2023-03-27 14:06] LABS: CALCIUM 8.7 mg/dL (8.5-10.1); CARBON DIOXIDE,CO2 29.4 mmol/L (21.0-32.0); CREATININE 1.6 mg/dL (0.8-1.3); EST CRCL DRUG DOSING (CG) 42.54 mL/min; POTASSIUM,K 3.8 mmol/L (3.5-5.1)
[2023-03-27] MEDS: oxyCODONE 5 MG/5 ML Cup GTUBE PRN (17:38)
[2023-03-27] MEDS: Amitriptyline 25 MG Tab GTUBE SCH (21:16)
[2023-03-28] MEDS: Pantoprazole 40 MG in Sodium Chloride 0.9% 10 ML IVPUSH SCH ×2 (04:19→17:09)
[2023-03-28] MEDS: Sucralfate Suspension 1 GM/10 ML Cup GTUBE SCH ×4 (06:34→21:02)
[2023-03-28 06:51] LABS: BASOPHILS ABSOLUTE AUTO 0.06 K/uL (0.00-0.20); BASOPHILS PERCENT AUTO 0.5 % (0.0-1.0); EOSINOPHILS PERCENT AUTO 3.4 % (0.0-6.0); HEMATOCRIT 40.8 % (42.0-52.0); IMMATURE GRAN ABSOLUTE AUTO 0.05 K/uL (0.00-0.05); IMMATURE GRAN PERCENT AUTO 0.4 % (0.0-0.4); LYMPHOCYTES ABSOLUTE AUTO 0.56 K/uL (1.00-4.80); LYMPHOCYTES PERCENT AUTO 4.7 % (24.0-44.0); MEAN CORPUSCULAR HEMOGLOBIN 30.3 pg (28.0-32.0); MEAN CORPUSCULAR HGB CONC 31.9 g/dL (32.0-36.0); MEAN CORPUSCULAR VOLUME 95.1 fL (83.0-99.0); MEAN PLATELET VOLUME 12.5 fL (9.4-12.4); MONOCYTES ABSOLUTE AUTO 0.72 K/uL (0.00-0.80); MONOCYTES PERCENT AUTO 6.1 % (0.0-8.0); NEUTROPHILS ABSOLUTE AUTO 10.06 K/uL (1.80-7.70); NEUTROPHILS PERCENT AUTO 84.9 % (41.0-71.0); PLATELET COUNT,PLT 166 K/uL (150-400); RED BLOOD CELL COUNT 4.29 M/uL (4.52-5.90); WHITE BLOOD CELL COUNT,WBC 11.85 K/uL (3.9-11.3)
[2023-03-28 07:32] LABS: CALCIUM 8.6 mg/dL (8.5-10.1); CARBON DIOXIDE,CO2 29.7 mmol/L (21.0-32.0); CREATININE 1.4 mg/dL (0.8-1.3); EST CRCL DRUG DOSING (CG) 48.62 mL/min; PHOSPHORUS 2.8 mg/dL (2.6-4.7); POTASSIUM,K 3.6 mmol/L (3.5-5.1)
[2023-03-28] MEDS: Morphine 2 MG/ML SYRINGE IVPUSH PRN (09:44)
[2023-03-28] MEDS: Primidone 50 MG Tab GTUBE SCH ×2 (09:53→21:03)
[2023-03-28] MEDS: Finasteride 5 MG Tab SCH (09:54)
[2023-03-28] MEDS: Isosorbide Mononitrate 30 MG Tab.ER SCH ×2 (09:55→21:03)
[2023-03-28] MEDS ORDERED: Baclofen 10 MG Tab PO PRN (16:02)
[2023-03-28] MEDS: oxyCODONE 5 MG/5 ML Cup GTUBE PRN (16:39)
[2023-03-28] MEDS: Heparin Sodium 5,000 Units/ML Vial SUBCUT SCH (21:03)
[2023-03-28] MEDS: Amitriptyline 25 MG Tab GTUBE SCH (21:03)
[2023-03-29] MEDS: Pantoprazole 40 MG in Sodium Chloride 0.9% 10 ML IVPUSH SCH (04:17)
[2023-03-29 06:29] LABS: BASOPHILS ABSOLUTE AUTO 0.04 K/uL (0.00-0.20); BASOPHILS PERCENT AUTO 0.3 % (0.0-1.0); EOSINOPHILS ABSOLUTE AUTO 0.35 K/uL (0.00-0.45); HEMATOCRIT 41.3 % (42.0-52.0); HEMOGLOBIN 13.3 g/dL (14.0-18.0); IMMATURE GRAN ABSOLUTE AUTO 0.04 K/uL (0.00-0.05); IMMATURE GRAN PERCENT AUTO 0.3 % (0.0-0.4); LYMPHOCYTES ABSOLUTE AUTO 0.49 K/uL (1.00-4.80); LYMPHOCYTES PERCENT AUTO 4.1 % (24.0-44.0); MEAN CORPUSCULAR HEMOGLOBIN 30.4 pg (28.0-32.0); MEAN CORPUSCULAR HGB CONC 32.2 g/dL (32.0-36.0); MEAN CORPUSCULAR VOLUME 94.3 fL (83.0-99.0); MEAN PLATELET VOLUME 13.2 fL (9.4-12.4); MONOCYTES ABSOLUTE AUTO 0.69 K/uL (0.00-0.80); MONOCYTES PERCENT AUTO 5.8 % (0.0-8.0); NEUTROPHILS PERCENT AUTO 86.5 % (41.0-71.0); PLATELET COUNT,PLT 158 K/uL (150-400); RED BLOOD CELL COUNT 4.38 M/uL (4.52-5.90); WHITE BLOOD CELL COUNT,WBC 11.81 K/uL (3.9-11.3)
[2023-03-29 07:00] LABS: CALCIUM 8.5 mg/dL (8.5-10.1); CARBON DIOXIDE,CO2 29.2 mmol/L (21.0-32.0); CREATININE 1.3 mg/dL (0.8-1.3); EST CRCL DRUG DOSING (CG) 52.36 mL/min; MAGNESIUM 2.1 mg/dL (1.8-2.4); PHOSPHORUS 2.4 mg/dL (2.6-4.7); POTASSIUM,K 3.8 mmol/L (3.5-5.1)
[2023-03-29] MEDS ORDERED: Phosphorus #1 250 MG Tab PO SCH (09:00)
[2023-03-29] MEDS: Sucralfate Suspension 1 GM/10 ML Cup GTUBE SCH ×2 (09:27→12:16)
[2023-03-29] MEDS: Heparin Sodium 5,000 Units/ML Vial SUBCUT SCH (09:27)
[2023-03-29] MEDS: Primidone 50 MG Tab GTUBE SCH (09:28)
[2023-03-29] MEDS: Isosorbide Mononitrate 30 MG Tab.ER SCH (09:28)
[2023-03-29] MEDS: Finasteride 5 MG Tab SCH (09:31)
[2023-03-29] MEDS: Morphine 2 MG/ML SYRINGE IVPUSH PRN ×2 (10:12→14:56)
== END 2023-03-29 15:30 | disposition home health service (06) | DRG 327 ==
LOC: MW.SDS 10:21 → MW.MS 15:54
PROVIDERS: ADMIT Internal Medicine; ATTEND Internal Medicine
PROC: 02HV33Z Insertion of Infusion Device into Superior Vena Cava, Percutaneous Approach (ICD-10-PCS; 2023-03-26)
PROC: B5181ZA Fluoroscopy of Superior Vena Cava using Low Osmolar Contrast, Guidance (ICD-10-PCS; 2023-03-26)
PROC: 0D964ZZ Drainage of Stomach, Percutaneous Endoscopic Approach (ICD-10-PCS; principal; 2023-03-26 12:00)
PROC: 0JH60WZ Insertion of Totally Implantable Vascular Access Device into Chest Subcutaneous Tissue and Fascia, Open Approach (ICD-10-PCS; 2023-03-26 12:00)
DX: C15.5 Malignant neoplasm of lower third of esophagus (principal); C78.7 Secondary malignant neoplasm of liver and intrahepatic bile duct; D68.69 Other thrombophilia; E87.0 Hyperosmolality and hypernatremia; E44.1 Mild protein-calorie malnutrition; I24.9 Acute ischemic heart disease, unspecified; R64 Cachexia; I25.10 Atherosclerotic heart disease of native coronary artery without angina pectoris; Z51.5 Encounter for palliative care; K21.9 Gastro-esophageal reflux disease without esophagitis; Z66 Do not resuscitate; I10 Essential (primary) hypertension; E86.0 Dehydration; K44.9 Diaphragmatic hernia without obstruction or gangrene; K22.4 Dyskinesia of esophagus; K20.90 Esophagitis, unspecified without bleeding; H91.90 Unspecified hearing loss, unspecified ear; H35.30 Unspecified macular degeneration; M19.90 Unspecified osteoarthritis, unspecified site; R13.10 Dysphagia, unspecified; G89.29 Other chronic pain; E66.9 Obesity, unspecified; F41.9 Anxiety disorder, unspecified; Z98.49 Cataract extraction status, unspecified eye; Z95.5 Presence of coronary angioplasty implant and graft; Z98.1 Arthrodesis status; Z86.010 Personal history of colon polyps; Z91.018 Allergy to other foods; I25.2 Old myocardial infarction; Z79.02 Long term (current) use of antithrombotics/antiplatelets; Z93.1 Gastrostomy status; Z95.1 Presence of aortocoronary bypass graft; Z79.899 Other long term (current) drug therapy; Z85.46 Personal history of malignant neoplasm of prostate; Z98.890 Other specified postprocedural states; Z79.01 Long term (current) use of anticoagulants; Z87.891 Personal history of nicotine dependence; Z68.27 Body mass index [BMI] 27.0-27.9, adult
CPT/HCPCS: 00790; 36415; 71045; 71045-26; 80048; 80053; 83735; 84100; 85025; 85027; 86850; 86900; 86901; 97162-GP; 99100; A9270-GY; C9113; J0665; J0694; J1100; J1642; J1644; J2270; J2405; J2704; J2795; J3010; J3490; J7060; J7120

== ENCOUNTER 2023-05-06 13:55 | Inpatient (IN) | payer OTHER, MEDICARE, BC ==
[2023-05-06] MEDS ORDERED: Furosemide 40 MG Tab GTUBE PRN (14:11)
[2023-05-06] MEDS ORDERED: Baclofen 10 MG Tab GTUBE PRN (14:11)
[2023-05-06] MEDS ORDERED: Acetaminophen 650 MG Supp RECTAL PRN (14:11)
[2023-05-06] MEDS ORDERED: Bisacodyl 10 MG Supp RECTAL PRN (14:11)
[2023-05-06] MEDS ORDERED: Ondansetron 4 MG Tab.DIS PO PRN (14:11)
[2023-05-06] MEDS ORDERED: Nitroglycerin 0.4 MG Tab.SL SL PRN (14:11)
[2023-05-06] MEDS ORDERED: guaiFENesin 100 MG/5 ML Soln 5 ML UD Cup NGTUBE PRN (14:38)
[2023-05-06] MEDS ORDERED: LORazepam 0.5 MG Tab GTUBE PRN (14:55)
[2023-05-06] MEDS ORDERED: Morphine 10 MG/0.5 ML Oral Syringe GTUBE PRN (14:55)
[2023-05-06] MEDS ORDERED: Metolazone 5 MG Tab PO SCH (14:59)
[2023-05-06] MEDS: Morphine 10 MG/0.5 ML Oral Syringe PO SCH ×3 (15:14→22:17)
[2023-05-06] MEDS: LORazepam ORAL Concentrate 1MG/0.5ML U/D PO SCH ×3 (15:14→22:18)
[2023-05-06] MEDS ORDERED: Metolazone 5 MG Tab PO PRN (16:35)
[2023-05-06] MEDS: Haloperidol Lactate 2 MG/ML Oral Soln 15 ML Bottle PO SCH ×2 (17:56→20:22)
[2023-05-06] MEDS: Primidone 50 MG Tab GTUBE SCH (20:21)
[2023-05-06] MEDS: Isosorbide Mononitrate 30 MG Tab.ER PO SCH (20:22)
[2023-05-07] MEDS: Haloperidol Lactate 2 MG/ML Oral Soln 15 ML Bottle PO SCH ×7 (01:22→21:14)
[2023-05-07] MEDS: Morphine 10 MG/0.5 ML Oral Syringe PO SCH ×6 (03:01→22:48)
[2023-05-07] MEDS: LORazepam ORAL Concentrate 1MG/0.5ML U/D PO SCH ×6 (03:01→22:49)
[2023-05-07] MEDS: Dexamethasone 4 MG Tab GTUBE SCH ×2 (08:58→11:45)
[2023-05-07] MEDS: Finasteride 5 MG Tab PO SCH (09:00)
[2023-05-07] MEDS: Amitriptyline 25 MG Tab GTUBE SCH (09:00)
[2023-05-07] MEDS: Lactulose Soln 10 GM/15 ML 15 ML UD Cup GTUBE SCH (09:02)
[2023-05-07] MEDS: Primidone 50 MG Tab GTUBE SCH ×2 (09:50→20:58)
[2023-05-07] MEDS: Omeprazole 20 MG Cap.CR GTUBE SCH (09:50)
[2023-05-07] MEDS: Isosorbide Mononitrate 30 MG Tab.ER PO SCH ×2 (09:51→21:04)
[2023-05-08] MEDS: Haloperidol Lactate 2 MG/ML Oral Soln 15 ML Bottle PO SCH ×6 (01:00→22:49)
[2023-05-08] MEDS: Morphine 10 MG/0.5 ML Oral Syringe PO SCH ×6 (02:30→22:59)
[2023-05-08] MEDS: LORazepam ORAL Concentrate 1MG/0.5ML U/D PO SCH ×6 (02:31→22:59)
[2023-05-08] MEDS: Isosorbide Mononitrate 30 MG Tab.ER PO SCH ×2 (09:33→20:27)
[2023-05-08] MEDS: Lactulose Soln 10 GM/15 ML 15 ML UD Cup GTUBE SCH (09:33)
[2023-05-08] MEDS: Primidone 50 MG Tab GTUBE SCH ×2 (09:36→20:27)
[2023-05-08] MEDS: Dexamethasone 4 MG Tab GTUBE SCH ×2 (09:37→11:02)
[2023-05-08] MEDS: Omeprazole 20 MG Cap.CR GTUBE SCH (09:37)
[2023-05-08] MEDS: Finasteride 5 MG Tab PO SCH (09:37)
[2023-05-08] MEDS: Amitriptyline 25 MG Tab GTUBE SCH (09:37)
[2023-05-08] MEDS: Hyoscyamine 0.125 MG Tab.SL SL PRN (10:06)
[2023-05-09] MEDS: LORazepam ORAL Concentrate 1MG/0.5ML U/D PO SCH ×3 (02:43→10:02)
[2023-05-09] MEDS: Hyoscyamine 0.125 MG Tab.SL SL PRN ×2 (02:43→09:08)
[2023-05-09] MEDS: Morphine 10 MG/0.5 ML Oral Syringe PO SCH ×3 (02:43→10:17)
[2023-05-09] MEDS: Haloperidol Lactate 2 MG/ML Oral Soln 15 ML Bottle PO SCH ×3 (03:02→10:01)
[2023-05-09] MEDS: Lactulose Soln 10 GM/15 ML 15 ML UD Cup GTUBE SCH (09:05)
[2023-05-09] MEDS: Isosorbide Mononitrate 30 MG Tab.ER PO SCH (09:06)
[2023-05-09] MEDS: Amitriptyline 25 MG Tab GTUBE SCH (09:06)
[2023-05-09] MEDS: Omeprazole 20 MG Cap.CR GTUBE SCH (09:06)
[2023-05-09] MEDS: Finasteride 5 MG Tab PO SCH (09:06)
[2023-05-09] MEDS: Primidone 50 MG Tab GTUBE SCH (09:06)
[2023-05-09] MEDS: Dexamethasone 4 MG Tab GTUBE SCH (09:08)
== END 2023-05-09 10:55 | DRG 951 ==
LOC: MW.MS 13:55
PROVIDERS: ADMIT Family Medicine; ATTEND Family Medicine
DX: Z51.5 Encounter for palliative care (principal); Z66 Do not resuscitate; Z75.5 Holiday relief care
CPT/HCPCS: A9270-GY; J3490; J8540